=== PATIENT | male | born 1990 | race Hispanic/Latino ===

== ENCOUNTER → 2019-07-15 | Outpatient (CLI) | payer OTHER | END | disposition home or self-care (01) | LOC: RAH 08:14 | PROVIDERS: ATTEND Internal Medicine Gastroenterology | DX: R10.10 Upper abdominal pain, unspecified (principal) | CPT/HCPCS: 76700; 93975 ==

== ENCOUNTER 2021-07-06 00:57 | Emergency (ER) | payer OTHER ==
[~2021-07-06] VITALS: Ht 182.9 cm; Wt 113.4 kg
[2021-07-06 00:59] VITALS: BP 151/95
[2021-07-06] MEDS ORDERED: DEXAMETHASONE SOD PHOSPHATE 4 MG/ML 1ML VIAL IM ONE (02:00)
[2021-07-06] MEDS ORDERED: DEXAMETHASONE SOD PHOSPHATE 4 MG/ML 1ML VIAL ONE (02:04)
[2021-07-06] MEDS ORDERED: ACET-66 PO (02:38)
[2021-07-06] MEDS ORDERED: LORA10TA7 PO (02:38)
[2021-07-06] MEDS ORDERED: OSEL75 PO (02:38)
== END 2021-07-06 02:44 | disposition home or self-care (01) ==
LOC: EDH 00:57
DX: U07.1 COVID-19 (principal); J11.1 Influenza due to unidentified influenza virus with other respiratory manifestations; Z20.822 Contact with and (suspected) exposure to COVID-19; Z79.52 Long term (current) use of systemic steroids
CPT/HCPCS: 87426; 87804 ×2; 96372; 99283; J1100